=== PATIENT | male | born 1950 | race Caucasian/White ===

== ENCOUNTER 2017-10-09 19:57 | Emergency (ER) | payer OTHER ==
[2017-10-09] MEDS: IBUPROFEN 600 MG TAB PO (20:26)
[2017-10-09] MEDS: HYDROCODONE/APAP (5/325) TAB PO (20:26)
== END 2017-10-09 21:19 | disposition home or self-care (01) ==
LOC: E/R 21:19
DX: S76.302A Unspecified injury of muscle, fascia and tendon of the posterior muscle group at thigh level, left thigh, initial encounter (principal); R55 Syncope and collapse; I10 Essential (primary) hypertension; X58.XXXA Exposure to other specified factors, initial encounter; Y92.320 Baseball field as the place of occurrence of the external cause
CPT/HCPCS: 73502; 73510; 93005; 99284-25